=== PATIENT | female | born 1980 | race Caucasian/White ===

== ENCOUNTER → 2017-08-08 | Outpatient (CLI) | payer BC ==
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
== END | disposition home or self-care (01) ==
LOC: RADXRMAIN 12:18
PROVIDERS: ATTEND Family Medicine
DX: M54.2 Cervicalgia (principal)
CPT/HCPCS: 72050

== ENCOUNTER → 2017-08-10 | Outpatient (CLI) | payer BC, OTHER ==
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
== END | disposition home or self-care (01) ==
LOC: RADCTMAIN 10:54
PROVIDERS: ATTEND Family Medicine
DX: S06.0X9A Concussion with loss of consciousness of unspecified duration, initial encounter (principal)
CPT/HCPCS: 70450

== ENCOUNTER → 2017-12-31 | Outpatient (CLI) | payer BC ==
--- NOTE | 2017-12-31 23:10 | US ---
EXAMINATION TYPE: US transvaginal DATE OF EXAM: 12/31/2017 COMPARISON: NONE CLINICAL HISTORY: 37-year-old female N92.0 Excessive and frequent menstruation. Heavy menses. On Dep o TECHNIQUE: Transvaginal (TV) Date of LMP: 11/18/2017, FINDINGS: Uterus: Anteverted and with slight myometrial heterogeneity. Uterus measures 8.2 x 6.2 x 4.4 cm. Ther e are there is a 1.6 cm debris-filled cervical nabothian cyst. Endometrial Stripe: 1.7 cm, mildly thickened. Heterogeneous in appearance. Right Ovary: 2.5 x 1.1 x 1.3 cm, within normal limits. Left Ovary: 2.4 x 1.2 x 1.5 cm with a 3.0 cm paraovarian simple cyst. No evident adnexal abnormality or cul-de-sac free fluid. IMPRESSION: 1. The endometrium show excessive mild thickening at 1.7 cm. This should correspond to the late secre tory phase of the menstrual cycle. Clinically correlate. Follow-up in 6-8 weeks to reassess if there is some clinical discordance. 2. Incidental 3.0 cm paraovarian simple cyst off the left ovary.
== END | disposition home or self-care (01) ==
LOC: RADUSWWP 16:50
PROVIDERS: ATTEND Family Medicine
DX: R93.8 Abnormal findings on diagnostic imaging of other specified body structures (principal); N83.202 Unspecified ovarian cyst, left side
CPT/HCPCS: 76830

== ENCOUNTER → 2018-10-28 | Outpatient (CLI) | payer BC ==
[2018-10-28 14:04] LABS: Basophils % (A) 1 %; Eosinophils # (A) 0.2 k/uL (0-0.7); Eosinophils % (A) 5 %; HCT 47.1 % (34.0-46.0); HGB 15.1 gm/dL (11.4-16.0); Lymphocytes % (A) 22 %; MCV 96.9 fL (80.0-100.0); Mean Platelet Volume 7.7; Monocytes # (A) 0.3 k/uL (0-1.0); Monocytes % (A) 7 %; Neutrophils # (A) 2.9 k/uL (1.3-7.7); Neutrophils % (A) 63 %; Platelet Count 218 k/uL (150-450); RBC 4.86 m/uL (3.80-5.40); RDW 13.4 % (11.5-15.5); WBC 4.6 k/uL (3.8-10.6)
== END | disposition home or self-care (01) ==
LOC: LABPAT 11:57
PROVIDERS: ATTEND Obstetrics & Gynecology Obstetrics
DX: Z01.812 Encounter for preprocedural laboratory examination (principal); N92.0 Excessive and frequent menstruation with regular cycle; N92.1 Excessive and frequent menstruation with irregular cycle
CPT/HCPCS: 36415; 85025

== ENCOUNTER 2018-11-11 08:18 | Day surgery (SDC) | payer BC ==
[2018-11-05 12:42] VITALS: BMI 23.8
[~2018-11-11 08:18] MED LIST: DEXAMETHASONE SOD PHOSPHATE 10 MG/ML 1 ML VIAL IV ONE; LACTATED RINGERS 1,000 ML IV SCH; LIDOCAINE 1% 20 ML VIAL (10MG/ML) FOR IV START INTRADERMA PRN; MIDAZOLAM 2 MG/2 ML VIAL IV PRN; ONDANSETRON 4 MG/2 ML VIAL IVP ONE; Pre Op ABX Message 1 EACH MISC MISCELLANE ONE; SCOPOLAMINE 1.5MG/72HR PATCH TRANSDERM ONE
[2018-11-11 08:54] VITALS: TEMP 98.2
[2018-11-11] MEDS ORDERED: PROPOFOL 10 MG/ML 20 ML VIAL IV ONE (09:43)
[2018-11-11] MEDS ORDERED: fentaNYL (PF) 50 MCG/ML 2 ML AMP ONE (09:43)
[2018-11-11] MEDS ORDERED: SUCCINYLCHOLINE CHLORIDE 100 MG/5 ML SYR IV ONE (09:43)
[2018-11-11] MEDS ORDERED: MIDAZOLAM 2 MG/2 ML VIAL ONE (09:43)
--- NOTE | 2018-11-11 10:19 | P.OP ---
Date of Procedure: 11/11/18 Preoperative Diagnosis: Menorrhagia, metrorrhagia Postoperative Diagnosis: Same plus posterior uterine defect Procedure(s) Performed: Hysteroscopy, dilation and curettage Anesthesia: GALINAA Surgeon: Aixa Lemus Estimated Blood Loss (ml): 5 IV fluids (ml): 200 Urine output (ml): 100 Pathology: other (Endometrial curettings) Condition: stable Disposition: PACU Indications for Procedure: Regular heavy menstrual cycles Operative Findings: Posterior uterine wall was noted to have 2 teeth defects. Midline in nature. Bilateral ostia were visualized the cavity appeared intact no bleeding from these defects Description of Procedure: Patient was seen in the preoperative area and informed consent was obtained. Patient counseled about the risks of surgery prior to this visit in the office. Risks were reviewed including ventilating limited to infection, bleeding, damage to bladder, bowel, other pelvic structures. Patient states understanding and wishes to proceed. Patient was taken to the operating suite where general anesthesia was obtained without difficulty by the anesthesia department. She was prepped and draped in normal sterile fashion in the dorsal lithotomy position. I Wyckoff catheter was used to drain the bladder of clear yellow urine, a weighted speculum was placed in the posterior vaginal vault the anterior lip of the cervix is visualized and grasped with a single-tooth tenaculum. The cervix was then serially dilated to 15-Citizen Of [place]. Hysteroscope was placed through the cervix and toward the endometrial cavity. On initial inspection both ostia were visualized on further evaluation to posterior defects were noted within the uterus. These appeared deep they were not bleeding and appeared old. Otherwise the cavity was intact. Given these 2 defects the endometrial ablation portion of this procedure was abandoned secondary to possibility of extension of the cautery. A sharp curettage was performed once again the cavity did feel intact this was then sent to pathology for analysis. The single-tooth tenaculum was taken off of the anterior lip of the cervix and hemostasis was appreciated. All counts were correct 2 patient tolerated procedure well and was taken to the recovery room awake in stable condition.
[2018-11-11] MEDS ORDERED: IV FLUID CONTINUATION 1,000 ML IV ONE (10:24)
[2018-11-11] MEDS: HYDROmorphone 0.5 MG/0.5 ML SYRINGE IVP PRN ×2 (10:35→10:43)
[2018-11-11 11:00] VITALS: RESP 16
[2018-11-11 11:40] VITALS: BP 110/74; PULSE 73
== END 2018-11-11 12:07 | disposition home or self-care (01) ==
LOC: OR 08:18
PROVIDERS: ATTEND Obstetrics & Gynecology Obstetrics
DX: N92.0 Excessive and frequent menstruation with regular cycle (principal); N92.1 Excessive and frequent menstruation with irregular cycle; F90.9 Attention-deficit hyperactivity disorder, unspecified type; Z79.899 Other long term (current) drug therapy; Z80.3 Family history of malignant neoplasm of breast; Z83.3 Family history of diabetes mellitus; Z80.8 Family history of malignant neoplasm of other organs or systems; Z88.2 Allergy status to sulfonamides
CPT/HCPCS: 81025; 58558; J2250; J1100; J2405; J3010; J0330; J2704; J1170; 88305